=== PATIENT | male | born 2000 | race Two or more races ===

== ENCOUNTER 2022-01-24 09:46 | Outpatient (REF) | payer OTHER, MEDICAID, SELFPAY ==
[2022-01-24 09:55] LABS: MANUAL DIFF FLAG NO
[2022-01-24 10:31] LABS: Basophils Percent Auto 0.7 % (0-2); Eosinophils Absolute Auto 0.1 X10*3/uL (0.0-0.4); Hemoglobin 14.8 g/dl (14.0-18.0); Imm Gran Abs Auto 0.01 X10*3/uL (0.00-0.03); Imm Gran Pct Auto 0.2 % (0.0-0.4); Lymphocytes Absolute Auto 2.1 X10*3/uL (1.2-4.9); Lymphocytes Percent Auto 35.1 % (20-40); Mean Corpuscular HGB Conc 34.4 g/dl (31.0-36.0); Mean Corpuscular Hemoglobin 29.6 pg (27.0-33.0); Mean Platelet Volume 9.4 fL (9.4-12.4); Monocytes Absolute Auto 0.5 X10*3/uL (0.1-1.2); Monocytes Percent Auto 8.2 % (2-11); Neutrophils Absolute Auto 3.3 x10*3/uL (2.0-8.3); Neutrophils Percent Auto 53.8 % (45-73); Platelet Count 292 X10*3/uL (160-400); Red Cell Distribution Width 11.9 % (11.0-16.0); White Blood Count 6.1 X10*3/uL (4.8-10.8)
[2022-01-24 11:34] LABS: Albumin Level 5.3 g/dL (3.5-5.0); Anion Gap 11 (12-20); Calcium 9.9 mg/dL (8.4-10.2); Carbon Dioxide 28 mmol/L (22-29); Chloride 101 mmol/L (96-108); Glucose Random 89 mg/dL (60-115); Potassium 4.1 mmol/L (3.3-5.1); Sodium 136 mmol/L (135-145); Total Protein 7.6 g/dL (6.5-8.0)
[2022-01-24 11:41] LABS: Alanine Aminotransferase 52 U/L (0-40); Alkaline Phosphatase 60 U/L (39-117); Aspartate Amino Transferase 32 U/L (5-37); Bilirubin Total 0.4 mg/dL (0.0-1.0); Blood Urea Nitrogen 24 mg/dL (9-16); Estimated Glomerular Filt Rate > 60
== END 2022-01-24 09:47 | disposition home or self-care (01) ==
LOC: HO.LAB 09:46
PROVIDERS: PCP Internal Medicine; Visit Provider Internal Medicine
DX: R51.9 Headache, unspecified (principal)
CPT/HCPCS: 36415; 80053; 85025

== ENCOUNTER 2022-02-05 17:27 | Outpatient (REF) | payer OTHER, MEDICAID, SELFPAY ==
--- NOTE | ~2022-02-05 | MR_ITS ---
EXAMINATION: MR BRAIN WITHOUT CONTRAST CLINICAL INFORMATION: Headaches. COMPARISON: None. TECHNIQUE: Multiplanar, multisequence imaging of the brain was performed without contrast. Slightly limited study with motion artifacts. FINDINGS: No diffusion abnormalities are identified to suggest an acute infarct. The ventricles are normal in size. No mass effect or midline shift is seen. No brain parenchymal signal abnormality is noted. No extra-axial fluid collections are seen. The brainstem and cerebellum are normal. The gradient refocused acquisition is normal. The craniovertebral junction, marrow signal, and midline structures are normal. The major intracranial flow voids at the level of the [place] are preserved. The dural venous sinus flow voids are maintained. The mastoid air cells are well aerated. Severe rightward nasal septal deviation noted with mild ethmoid sinus mucosal thickening. MR/MR head/brain wo con IMPRESSION: Normal MRI of the brain with motion artifacts. Significant rightward nasal septal deviation.
== END 2022-02-05 17:28 | disposition home or self-care (01) ==
LOC: HO.MRI 17:27
PROVIDERS: Visit Provider Internal Medicine
DX: R51.9 Headache, unspecified (principal)
CPT/HCPCS: 70551

== ENCOUNTER 2022-03-12 07:51 | Outpatient (REF) | payer OTHER, MEDICAID, SELFPAY ==
--- NOTE | ~2022-03-12 | US_ITS ---
EXAMINATION: US ABDOMEN COMPLETE CLINICAL INFORMATION: Elevation of levels of liver transaminase levels. COMPARISON: None TECHNIQUE: Real-time imaging of the abdominal viscera. FINDINGS: PANCREAS: Normal. ABDOMINAL AORTA: The proximal, mid, and distal segments are normal in caliber. INFERIOR VENA CAVA: Visualized portions are normal. LIVER: Normal. The liver is normal in size. The liver contour is normal. Parenchymal echogenicity is normal. No focal hepatic lesion. There is no intrahepatic biliary duct dilatation seen. GALLBLADDER: Multiple gallbladder polyps measuring up to 3 mm. The gallbladder is physiologically distended without evidence of stones, sludge, wall thickening or pericholecystic fluid. COMMON BILE DUCT: Normal in caliber measuring 0.5 cm in diameter. RIGHT KIDNEY: Normal. No hydronephrosis. No renal calculi or focal parenchymal lesions. The kidney measures 10.4 cm in maximum dimension. LEFT KIDNEY: Normal. No hydronephrosis. No renal calculi or focal parenchymal lesions. The kidney measures 11.4 cm in maximum dimension. SPLEEN: Normal. The spleen measures 12.1 cm in maximum dimension. FREE FLUID: None. US/US abdomen complete IMPRESSION: Multiple gallbladder polyps measuring up to 3 mm. If patient has no risk factors for gallbladder malignancy* or symptoms attributable to the gallbladder, follow-up recommendations are repeat ultrasound at one, 3, and 5 years from the date of original exam documenting the findings. If patient has symptoms attributable to the gallbladder, cholecystectomy is suggested if there are no alternative causes for the symptoms and the patient is fit for and accepts surgery. If cholecystectomy is not deemed appropriate follow-up as below. If patient has no symptoms and risk factors are present or patient is symptomatic and cholecystectomy is deemed not appropriate, follow-up.
[2022-03-12 09:58] LABS: Alanine Aminotransferase 37 U/L (0-40); Albumin Level 4.5 g/dL (3.5-5.0); Alkaline Phosphatase 60 U/L (39-117); Aspartate Amino Transferase 31 U/L (5-37); Bilirubin Direct 0.2 mg/dL (0.0-0.5); Bilirubin Total 0.5 mg/dL (0.0-1.0); Total Protein 7.3 g/dL (6.5-8.0)
== END 2022-03-12 07:52 | disposition home or self-care (01) ==
LOC: HO.US 07:51
PROVIDERS: PCP Internal Medicine; Visit Provider Internal Medicine
DX: R74.01 Elevation of levels of liver transaminase levels (principal)
CPT/HCPCS: 36415; 76700; 80076

== ENCOUNTER → 2022-04-02 08:19 | Outpatient (BNVA) | payer OTHER, MEDICAID, SELFPAY | PROVIDERS: PCP Internal Medicine; Visit Provider Nurse Practitioner Family | DX: Z13.89 Encounter for screening for other disorder (principal) ==

== ENCOUNTER → 2022-06-07 08:45 | Outpatient (BNVA) | payer OTHER, MEDICAID, SELFPAY | PROVIDERS: PCP Internal Medicine; Referring Provider Internal Medicine; Visit Provider Surgery | DX: Z13.89 Encounter for screening for other disorder (principal) ==

== ENCOUNTER → 2022-06-13 08:17 | Outpatient (BNVA) | payer OTHER, MEDICAID, SELFPAY | PROVIDERS: PCP Internal Medicine; Visit Provider Nurse Practitioner Family | DX: Z13.89 Encounter for screening for other disorder (principal) ==

== ENCOUNTER 2022-11-28 08:25 | Outpatient (REF) | payer OTHER, SELFPAY | END 2022-11-28 08:26 | disposition home or self-care (01) | LOC: HO.HMGCX 08:25 | PROVIDERS: PCP Internal Medicine; Visit Provider Surgery | DX: K82.4 Cholesterolosis of gallbladder (principal) | CPT/HCPCS: 76705 ==

== ENCOUNTER 2022-12-03 08:18 | Outpatient (AMB) | payer OTHER, SELFPAY ==
--- NOTE | 2022-12-03 08:19 | MHC.OFFVIS ---
Intake Vital Signs 12/03/22 08:23 Height 5 ft 8 in Weight 157 lb BMI 23.9 BP 124/58 L Blood Pressure Location Rt brachial Position Sitting Pulse 68 Intake Visit Reasons: Gallbladder polyps, 6 mo follow up Intake Note: Patient here to f/u 6m gallbladder polyps. Patient reports recently experiencing pain on rt to mid lower abd pain. Denies constipation, diarrhea. Reports no changes in medical hx since last visit. Upper Marker Required: No Accompanied by: Mother Allergies No Known Allergies Allergy (Verified 12/03/22 08:25) Medication List - Last Reconciled 12/03/22 by Aneesh Perez MD amitriptyline 10 mg PO BEDTIME 30 days ammonium lactate 12% 1 appl topical DAILY benzoyl peroxide 5% 1 appl topical DAILY fluticasone propionate 50 mcg/actuation (Allergy Relief (fluticasone)) 1 spray intranasal DAILY ibuprofen 400 mg PO Q6H loratadine (Allergy Relief (loratadine)) 10 mg PO DAILY magnesium oxide 400 mg PO BEDTIME 30 days riboflavin (vitamin B2) 400 mg PO DAILY 30 days sumatriptan succinate 50 - 100 mg orally at onset of headache, may repeat in 2 hrs PRN; max 2 tabs per day or 4 tabs/week (may take with Ibuprofen) 30 days tretinoin 0.025% 1 appl topical BEDTIME triamcinolone acetonide 0.1% 1 appl dental BEDTIME PRN HPI HPI Comments History of Present Illness Details Patient presents with his mother for evaluation/surveillance of gallbladder polyps. He is having no right upper quadrant symptoms. He has nonspecific infraumbilical abdominal crampy pain but nothing suggestive of biliary disease. He has never been jaundiced before. Tolerating his diet. Moving his bowels. Follow-up sonogram demonstrates 2 mm polyps of gall bladder status quo [facility] Surgical History No pertinent past surgical history Family History Mother Arthritis Generalized headaches Father Hypercholesteremia Maternal Grandfather Cancer Maternal Grandmother Cancer Social History Housing: Apartment Patient Tobacco Use Status: Never used Tobacco e-Cigarette/Vaping Use: Never Used Second Hand Smoke Exposure: No service: No Current occupational status: employed Current occupational exposures/hazards: No Cognitive needs: No Hearing needs: No Vision needs: No Physical Exam Vital Signs: Last Vital Signs Pulse 68 12/03/22 08:23 BP 124/58 L 12/03/22 08:23 BMI result Body Mass Index 23.9 Eyes Other: Anicteric GI Other: Thin male. Examined both supine and standing. Abdomen soft. No evidence of any groin umbilical hernia. Benign exam. Assessment & Plan Assessment & Plan (1) Polyp of gallbladder: Code(s): K82.4 - Cholesterolosis of gallbladder Plan: Current plan is see the patient approximately 1 year's time with follow-up surveillance sonogram. Should he continue to have his nonspecific lower abdominal pains, I recommend he follow-up with his tool design engineer. All questions were answered. Patient will see me as directed or p.r.n. Orders: Orders US abdomen limited 11 Months K82.4 - Cholesterolosis of gallbladder Coding Level of Care Code Est Pt Level 3 (21524) Diagnoses Polyp of gallbladder K82.4
[2022-12-03 08:23] VITALS: BP 124/58; PULSE 68; BMI 23.9
== END 2022-12-03 08:34 | disposition home or self-care (01) ==
PROVIDERS: PCP Internal Medicine; Visit Provider Surgery
DX: K82.4 Cholesterolosis of gallbladder (principal)
CPT/HCPCS: 99213

== ENCOUNTER → 2022-12-03 08:18 | Outpatient (BNVA) | payer OTHER, SELFPAY | PROVIDERS: PCP Internal Medicine; Visit Provider Surgery ==

== ENCOUNTER 2023-06-10 07:18 | Outpatient (AMB) | payer BC, SELFPAY ==
--- NOTE | 2023-06-10 07:33 | A.OFFPC_ITS ---
Vital Signs 06/10/23 07:36 Height 5 ft 8 in Weight 161 lb BMI 24.5 BP 120/80 Blood Pressure Location Lt brachial Position Sitting Intake Visit Reasons: PE Intake Note: Patient here for a physical exam Communications Instructor Required: No Accompanied by: Self / Same As Patient Allergies No Known Allergies Allergy (Verified 06/10/23 07:44) Medication List - Last Reconciled 06/10/23 by Silva Hsu MD amitriptyline 10 mg PO BEDTIME 30 days ammonium lactate 12% 1 appl topical DAILY benzoyl peroxide 5% 1 appl topical DAILY fluticasone propionate 50 mcg/actuation (Allergy Relief (fluticasone)) 1 spray intranasal DAILY ibuprofen 400 mg PO Q6H loratadine (Allergy Relief (loratadine)) 10 mg PO DAILY magnesium oxide 400 mg PO BEDTIME 30 days riboflavin (vitamin B2) 400 mg PO DAILY 30 days sumatriptan succinate 50 - 100 mg orally at onset of headache, may repeat in 2 hrs PRN; max 2 tabs per day or 4 tabs/week (may take with Ibuprofen) 30 days tretinoin 0.025% 1 appl topical BEDTIME triamcinolone acetonide 0.1% 1 appl dental BEDTIME PRN Tobacco use date assessed: 06/10/23 Dental Screening Dental Screen Date: 06/10/23 Did you have a dental visit in the last 12 months?: Yes Did you have a dental problem in the last 6 months where you did not have access to dental care?: No Was dental information given to patient?: Patient has dentist HPI HPI Comments History of Present Illness Details This is a 22-year-old male that comes accompanied by mother for his physical exam. Denies any acute complaint. Has gallbladder polyp that is follow by surgery. Immunizations up-to-date except tetanus vaccine. No chest pain or shortness of breath. No fever or cough. PFSH Surgical History No pertinent past surgical history Family History Mother Arthritis Generalized headaches Father Hypercholesteremia Maternal Grandfather Cancer Maternal Grandmother Cancer Social History (Updated 06/10/23 @ 07:49 by Silva Hsu MD) Housing: Apartment Alcohol intake: never Patient Tobacco Use Status: Never used Tobacco e-Cigarette/Vaping Use: Never Used Second Hand Smoke Exposure: No service: No Current occupational status: employed Current occupational exposures/hazards: No Cognitive needs: No Hearing needs: No Vision needs: No Questionnaire PHQ-9 Over the last 2 weeks, how often have you been bothered by any of the following problems? 1. Little interest or pleasure in doing things: not at all 2. Feeling down, depressed, or hopeless: not at all 3. Trouble falling or staying asleep, or sleeping too much: not at all 4. Feeling tired or having little energy: not at all 5. Poor appetite or overeating: not at all 6. Feeling bad about yourself - or that you are a failure or have let yourself or your family down: not at all 7. Trouble concentrating on things, such as reading the newspaper or watching television: not at all 8. Moving or speaking so slowly that other people could have noticed. Or the opposite - being so fidgety or restless that you have been moving around a lot more than usual: not at all 9. Thoughts that you would be better off or of hurting yourself in some way: not at all Total score: 0 Depression Screening Interpretation: Negative Depression Screening Done: Yes 22779 - PHQ-9 Billing: Yes Source: Developed by Drs. Shamir Almeida, Bhakti Ibanez, Peyman Harmon and colleagues, with an educational carmenza from [employer]. Thrive Questionnaire Date Thrive assessed: 06/10/23 I am a: Patient What is your living situation today?: I have a steady place to live Within the past 12 months, did the food you bought not last and you didn't have the money to get more?: Never true Within the past 12 months, did you worry whether your food would run out before you got money to buy more?: Never true Do you have trouble paying for medicines?: No Do you have trouble getting transportation to medical appointments?: No Do you have trouble paying your heating and electricity bill?: No Do you have trouble taking care of your child, family member or friend?: No Do you have trouble with day-to-day activities such as bathing, preparing meals, shopping, managing finances, etc.?: No Are you currently unemployed and looking for a job?: No Are you interested in more education?: No Please select the resources that you would like help with: None Currently or been in a relationship where the following occur: no concerns reported THRIVE Score: 0 AUDIT C Alcohol Use Questionnaire (AUDIT-C) 1. How often do you have a drink containing alcohol?: Never Total Score: 0 JAVON-7 AMB Questionnaire JAVON-7 Date JAVON - 7 assessed: 06/10/23 Feeling nervous, anxious, or on edge: 0 = Not at all Not being able to stop or control worryin = Not at all Worrying too much about different things: 0 = Not at all Trouble relaxin = Not at all Being so restless that it is hard to sit still: 0 = Not at all Becoming easily annoyed or irritable: 0 = Not at all Feeling afraid as if something awful might happen: 0 = Not at all Total JAVON-7 score (0-4 normal; 5-9 mild; 10-14 moderate; 15-21 severe): 0 Source: Developed by Drs. Shamir Almeida, Bhakti Ibanez, Peyman Harmon and colleagues, with an educational carmenza from [employer]. JAVON-7 Assessment Billing JAVON-7 Assessment Tool: JAVON-7 Assessment 82913 Review of Systems Const All systems reviewed & are unremarkable except as noted in HPI and below Eyes Reports no additional complaints, Denies change in vision and Denies other visual disturbances Card Denies chest pain at rest, Denies chest pain with activity, Denies edema, Denies irregular heart rhythm, Denies claudication, Denies dyspnea, Denies dyspnea on exertion, Denies orthopnea, Denies paroxysmal nocturnal dyspnea and Denies slow heart rate Resp Denies cough, Denies dyspnea and Denies dyspnea on exertion GI Denies abdominal pain, Denies change in bowel habits, Denies excessive flatus, Denies nausea and Denies vomiting Denies urinary hesitancy, Denies urinary incontinence and Denies urinary urgency Physical exam (Primary Care) Vital Signs: Last Vital Signs BP 120/80 06/10/23 07:36 BMI result Body Mass Index 24.5 Tobacco/Smoking Status: Tobacco use Status Tobacco use date assessed 06/10/23 06/10/23 07:39 Patient Tobacco Use Status Never used Tobacco 06/10/23 07:49 e-Cigarette/Vaping Use Never Used 06/10/23 07:49 PHQ-9: PHQ-9 Score PHQ-9: Total score 0 06/10/23 07:50 Depression Screening Interpretation: Negative Thrive Assessment: Date of Thrive Assessment Date Thrive assessed 06/10/23 06/10/23 07:39 Currently or been in a relationship where the following occur: no concerns reported Const Orientation/consciousness: patient oriented x3 HENMT Head: Yes normal to inspection, Yes normocephalic and Yes atraumatic Ears: external ears normal Eyes General: appearance normal, both eyes and all related structures Eyelids: Yes eyelids normal Conjunctivae: conjunctivae normal Neck Neck: Yes normal visual inspection and Yes supple Resp Effort & Inspection: normal respiratory effort Auscultation: clear to auscultation bilaterally Cardio Jugular venous distension: no JVD Rate: regular rate Rhythm: regular rhythm Heart sounds: S1 normal heart sound present and S2 normal heart sound present GI Inspection: Yes normal to inspection Palpation (GI): Soft to palpation and nontender Auscultation: normal bowel sounds Skin General skin exam: no rashes or lesions noted Neuro General: patient oriented x3 and no focal motor deficits Extrem General: Yes full ROM Psych Appearance: grossly normal Immunizations Boostrix Tdap 2.5 Lf unit-8 mcg-5 Lf/0.5 mL intramuscular syringe Performing Provider: Silva Hsu MD Performing Location: [facility] Administered by: ALIX Mayes on 06/10/23 08:01 Dose Route Admin Location Dispensed Lot Number Expiration Date [facility] Circulation Worker 0.5 mL IM Left Deltoid 0.5 mL [id number] 06/28/25 22619-429-21 [employer] VIS Given Date VIS Provided VIS Publication Date 06/10/23 Single Vaccine 20 Eligibility Eligibility Date Funding Source Not [facility] Eligible 06/10/23 Private Assessment and Plan Assessment & Plan (1) Physical exam: Code(s): Z00.00 - Encounter for general adult medical examination without abnormal fin dings Plan: Repeat in a year. Orders: Orders TDaP Immunization Today Z23 - Encounter for immunization Medications: New Boostrix Tdap (diphth,pertus(acell),tetanus) 0.5 mL IM ONCE 0.5 mL 0RF NS Z23 - Encounter for immunization Coding Level of Care Code Est Pt Prev Care 18-39y(34620) Diagnoses Physical exam Z00.00 Additional Codes JAVON-7 Assessment Billing - JAVON-7 Assessment Tool: JAVON-7 Assessment 19526 ([id number]) Time Spent (min) 30
[2023-06-10 07:36] VITALS: BP 120/80; BMI 24.5
== END 2023-06-10 08:00 | disposition home or self-care (01) ==
PROVIDERS: PCP Internal Medicine; Visit Provider Internal Medicine
DX: Z23 Encounter for immunization (principal); Z00.00 Encounter for general adult medical examination without abnormal findings
CPT/HCPCS: 90471; 90715; 99395

== ENCOUNTER → 2023-06-26 08:03 | Outpatient (BNVA) | payer SELFPAY | PROVIDERS: PCP Internal Medicine; Visit Provider Physician Assistant Medical | DX: Z02.79 Encounter for issue of other medical certificate (principal) ==

== ENCOUNTER 2023-10-28 08:32 | Outpatient (REF) | payer BC, SELFPAY ==
--- NOTE | ~2023-10-28 | US_ITS ---
EXAMINATION: US ABDOMEN LIMITED CLINICAL INFORMATION: Cholesterolosis of gallbladder. COMPARISON: Ultrasound abdomen 11/28/2022 and 03/12/2022. TECHNIQUE: Real-time imaging of the right upper quadrant abdominal viscera. FINDINGS: PANCREAS: Normal. LIVER: Normal. The liver is normal in size. The liver contour is normal. Parenchymal echogenicity is normal. No focal hepatic lesion. There is no intrahepatic biliary duct dilatation seen. GALLBLADDER: Few tiny 2 mm gallbladder polyps which appear low risk in morphology previously measuring up to 2 mm. The gallbladder is physiologically distended without evidence of stones, sludge, wall thickening or pericholecystic fluid. COMMON BILE DUCT: Normal in caliber measuring 0.37 cm in diameter. RIGHT KIDNEY: Normal. No hydronephrosis. No renal calculi or focal parenchymal lesions. The kidney measures 10.7 cm in maximum dimension. FREE FLUID: None. US/US abdomen limited IMPRESSION: Few tiny 2 mm gallbladder polyps which appear low risk in morphology previously measuring up to 2 mm. Electronically signed by: Mary Atkins MD 11/03/2023 06:36 PM EDT
== END 2023-10-28 08:33 | disposition home or self-care (01) ==
LOC: HO.HMGCX 08:32
PROVIDERS: PCP Internal Medicine; Visit Provider Surgery
DX: K82.4 Cholesterolosis of gallbladder (principal)
CPT/HCPCS: 76705

== ENCOUNTER 2023-12-15 08:54 | Outpatient (AMB) | payer BC, SELFPAY ==
[2023-12-15 09:03] VITALS: BP 138/65; PULSE 92; BMI 24.2
--- NOTE | 2023-12-15 09:03 | A.OFFVIS_ITS ---
Vital Signs 12/15/23 09:03 Height 5 ft 8 in Weight 159 lb BMI 24.2 BP 138/65 Blood Pressure Location Rt brachial Position Sitting Pulse 92 Intake Visit Reasons: Gallbladder polyps, 1 year follow up Intake Note: Patient here for 1yr follow up gallbladder polyps. Patient c/o: mid lower abdominal discomfort. Denies diarrhea, constipation. ABD US: 10-28-2023. Dispatcher Tugboat Required: No Accompanied by: Mother Allergies No Known Allergies Allergy (Verified 12/15/23 09:04) HPI Comments Details: Patient was with his mother. He has no upper abdominal symptoms or complaints. He states when he eats very fast/quickly he will get some lower abdominal pain but I think this is unrelated to his gallbladder polyps. The meantime sonogram demonstrates unchanged 2 mm gallbladder polyps. PFSH Surgical History No pertinent past surgical history Family History Mother Arthritis Generalized headaches Father Hypercholesteremia Maternal Grandfather Cancer Maternal Grandmother Cancer Social History Housing: Apartment Alcohol intake: never Patient Tobacco Use Status: Never used Tobacco e-Cigarette/Vaping Use: Never Used Second Hand Smoke Exposure: No service: No Current occupational status: employed Current occupational exposures/hazards: No Cognitive needs: No Hearing needs: No Vision needs: No Physical Exam Vital Signs: Last Vital Signs Pulse 92 12/15/23 09:03 BP 138/65 12/15/23 09:03 BMI result Body Mass Index 24.2 GI Other: Abdomen is soft, benign Assessment & Plan Assessment & Plan (1) Polyp of gallbladder: Code(s): K82.4 - Cholesterolosis of gallbladder Category: Surgical Plan From a surgical perspective, no further interventions required regarding gallbladder small polyps. Patient will otherwise follow-up p.r.n.. Coding Level of Care Code Est Pt Level 3 (50297) Diagnoses Polyp of gallbladder K82.4
== END 2023-12-15 09:11 | disposition home or self-care (01) ==
PROVIDERS: PCP Internal Medicine; Visit Provider Surgery
DX: K82.4 Cholesterolosis of gallbladder (principal)
CPT/HCPCS: 99213

== ENCOUNTER → 2023-12-15 08:54 | Outpatient (BNVA) | payer BC, SELFPAY | PROVIDERS: PCP Internal Medicine; Visit Provider Surgery ==

== ENCOUNTER 2024-12-29 07:29 | Outpatient (REF) | payer BC, SELFPAY ==
[2024-12-29 11:07] LABS: CT PCR Urine NOT DETECTED (Not Detect.); NG PCR Urine NOT DETECTED (Not Detect.)
== END 2024-12-29 07:30 | disposition home or self-care (01) ==
LOC: HO.LAB 07:29
PROVIDERS: PCP Internal Medicine; Visit Provider Internal Medicine
DX: Z00.00 Encounter for general adult medical examination without abnormal findings (principal); K82.4 Cholesterolosis of gallbladder; Z20.2 Contact with and (suspected) exposure to infections with a predominantly sexual mode of transmission
CPT/HCPCS: 87491; 87591; 96127

== ENCOUNTER 2024-12-29 07:29 | Outpatient (AMB) | payer BC, SELFPAY ==
[2024-12-29 07:32] VITALS: BP 112/68; PULSE 69; O2SAT 98; BMI 24.0
--- NOTE | 2024-12-29 07:32 | MHC.PC.OV ---
Vital Signs 12/29/24 07:32 Height 5 ft 8 in Weight 158 lb BMI 24.0 BP 112/68 Blood Pressure Location Lt brachial Position Sitting Pulse 69 Pulse Source Pulse Oximeter Pulse Oximetry (%) 98 Oxygen Delivery Method Room Air Intake Visit Reasons: annual physical Contract Runner Required: No Accompanied by: Self / Same As Patient Allergies No Known Allergies Allergy (Verified 12/29/24 07:43) Medication List - Last Reconciled 12/29/24 by Silva Hsu MD ammonium lactate 12% 1 appl topical DAILY benzoyl peroxide 5% 1 appl topical DAILY fluticasone propionate 50 mcg/actuation (Allergy Relief (fluticasone)) 1 spray intranasal DAILY ibuprofen 400 mg PO Q6H loratadine (Allergy Relief (loratadine)) 10 mg PO DAILY magnesium oxide 400 mg PO BEDTIME 30 days sumatriptan succinate 50 - 100 mg orally at onset of headache, may repeat in 2 hrs PRN; max 2 tabs per day or 4 tabs/week (may take with Ibuprofen) 30 days tretinoin 0.025% 1 appl topical BEDTIME triamcinolone acetonide 0.1% 1 appl dental BEDTIME PRN Tobacco use date assessed: 12/29/24 Dental Screening Dental Screen Date: 12/29/24 Did you have a dental visit in the last 12 months?: Yes Did you have a dental problem in the last 6 months where you did not have access to dental care?: No Was dental information given to patient?: Patient has dentist HPI HPI Comments History of Present Illness Details The patient is a 24-year-old male presenting for a follow-up visit for his physical exam accompanied by mother. Declines flu vaccine. He is sexually active and wants to be screened for sexually transmitted diseases despite not having any symptoms. He does use condoms. The patient has a history of a few tiny 2 mm gallbladder polyps, which were identified on an ultrasound in November of the previous year and appeared to have low-risk morphology. The gallbladder was noted to be physiologically distended without evidence of stones, sludge, wall thickening, or pericholecystic fluid. His last laboratory results were noted to be normal. He has a history of canker sores since childhood, which reportedly resolve within a week with xlvy-szk-krumjbp treatments such as Orajel. He also has a history of migraines, for which he takes sumatriptan as needed, and allergies, managed with loratadine and a nasal spray. He takes ibuprofen as needed and magnesium at bedtime. Past surgical history is negative. Family history is notable for arthritis and headaches in his mother and high cholesterol in his father. [facility] Surgical History No pertinent past surgical history Family History Mother Arthritis Generalized headaches Father Hypercholesteremia Maternal Grandfather Cancer Maternal Grandmother Cancer Social History Housing: Apartment Alcohol intake: never Patient Tobacco Use Status: Never used Tobacco Tobacco use type: Cigarette e-Cigarette/Vaping Use: Never Used Second Hand Smoke Exposure: No service: No Current occupational status: employed Current occupational exposures/hazards: No Cognitive needs: No Hearing needs: No Vision needs: No Questionnaire PHQ-9 Over the last 2 weeks, how often have you been bothered by any of the following problems? 1. Little interest or pleasure in doing things: not at all 2. Feeling down, depressed, or hopeless: not at all 3. Trouble falling or staying asleep, or sleeping too much: not at all 4. Feeling tired or having little energy: not at all 5. Poor appetite or overeating: not at all 6. Feeling bad about yourself - or that you are a failure or have let yourself or your family down: not at all 7. Trouble concentrating on things, such as reading the newspaper or watching television: not at all 8. Moving or speaking so slowly that other people could have noticed. Or the opposite - being so fidgety or restless that you have been moving around a lot more than usual: not at all 9. Thoughts that you would be better off or of hurting yourself in some way: not at all Total score: 0 Depression Screening Interpretation: Negative Depression Screening Done: Yes 80810 - PHQ-9 Billing: Yes Source: Developed by Drs. Shamir Almeida, Bhakti Ibanez, Peyman Harmon and colleagues, with an educational carmenza from [employer]. Thrive Questionnaire Date Thrive assessed: 12/29/24 I am a: Patient What is your living situation today?: I have a steady place to live Within the past 12 months, did the food you bought not last and you didn't have the money to get more?: Never true Within the past 12 months, did you worry whether your food would run out before you got money to buy more?: Never true Do you have trouble paying for medicines?: No Do you have trouble getting transportation to medical appointments?: No Do you have trouble paying your heating and electricity bill?: No Do you have trouble taking care of your child, family member or friend?: No Do you have trouble with day-to-day activities such as bathing, preparing meals, shopping, managing finances, etc.?: No Are you currently unemployed and looking for a job?: No Are you interested in more education?: No Please select the resources that you would like help with: None Currently or been in a relationship where the following occur: No concerns reported THRIVE Score: 0 AUDIT C Alcohol Use Questionnaire (AUDIT-C) 1. How often do you have a drink containing alcohol?: Monthly or less 2. How many drinks containing alcohol do you have on a typical day when you are drinking?: 1 or 2 3. How often do you have six or more drinks on one occasion?: Never Total Score: 1 Score Reviewed/Action Taken: No JAVON-7 AMB Questionnaire JAVON-7 Date JAVON - 7 assessed: 12/29/24 Feeling nervous, anxious, or on edge: 0 = Not at all Not being able to stop or control worryin = Not at all Worrying too much about different things: 0 = Not at all Trouble relaxin = Not at all Being so restless that it is hard to sit still: 0 = Not at all Becoming easily annoyed or irritable: 0 = Not at all Feeling afraid as if something awful might happen: 0 = Not at all Total JAVON-7 score (0-4 normal; 5-9 mild; 10-14 moderate; 15-21 severe): 0 Source: Developed by Drs. Shamir Almeida, Bhakti Ibanez, Peyman Harmon and colleagues, with an educational carmenza from [employer]. JAVON-7 Assessment Billing JAVON-7 Assessment Tool: JAVON-7 Assessment 67218 Review of Systems Const All systems reviewed & are unremarkable except as noted in HPI and below Card Denies chest pain at rest, Denies chest pain with activity, Denies edema, Denies irregular heart rhythm, Denies claudication, Denies dyspnea, Denies dyspnea on exertion, Denies orthopnea, Denies paroxysmal nocturnal dyspnea and Denies slow heart rate Resp Denies cough, Denies dyspnea and Denies dyspnea on exertion GI Denies abdominal pain, Denies change in bowel habits, Denies excessive flatus, Denies nausea and Denies vomiting Physical exam (Primary Care) Vital Signs: Last Vital Signs Pulse 69 12/29/24 07:32 BP 112/68 12/29/24 07:32 Pulse Ox 98 12/29/24 07:32 Oxygen Delivery Method Room Air 12/29/24 07:32 BMI result Body Mass Index 24.0 Tobacco/Smoking Status: Tobacco use Status Tobacco use date assessed 12/29/24 12/29/24 07:38 Patient Tobacco Use Status Never used Tobacco 12/29/24 07:38 Tobacco use type Cigarette 12/29/24 07:38 e-Cigarette/Vaping Use Never Used 12/29/24 07:38 PHQ-9: PHQ-9 Score PHQ-9: Total score 0 12/29/24 07:38 Depression Screening Interpretation: Negative Thrive Assessment: Date of Thrive Assessment Date Thrive assessed 12/29/24 12/29/24 07:38 Currently or been in a relationship where the following occur: No concerns reported Eyes General: appearance normal, both eyes and all related structures Eyelids: Yes eyelids normal Conjunctivae: conjunctivae normal Neck Neck: Yes normal visual inspection and Yes supple Resp Effort & Inspection: normal respiratory effort Auscultation: clear to auscultation bilaterally Cardio Jugular venous distension: no JVD Rate: regular rate Rhythm: regular rhythm Heart sounds: S1 normal heart sound present and S2 normal heart sound present GI Inspection: Yes normal to inspection Palpation (GI): Soft to palpation and nontender Auscultation: normal bowel sounds Skin General skin exam: no rashes or lesions noted Neuro General: no focal motor deficits Extrem General: Yes full ROM Psych Appearance: grossly normal Coding Level of Care Code Est Pt Level 3 (37885) Est Pt Prev Care 18-39y(19108) Diagnoses Physical exam Z00.00 Screen for STD (sexually transmitted disease) Z11.3 Polyp of gallbladder K82.4 Additional Codes JAVON-7 Assessment Billing - JAVON-7 Assessment Tool: JAVON-7 Assessment 35904 ([id number]) PHQ-9 - 44291 - PHQ-9 Billing: Yes ([id number]) Time Spent (min) 31 Assessment & Plan Assessment & Plan (1) Physical exam: Code(s): Z00.00 - Encounter for general adult medical examination without abnormal findings Category: Medical (2) Screen for STD (sexually transmitted disease): Code(s): Z11.3 - Encounter for screening for infections with a predominantly sexual mode of transmission Category: Medical (3) Polyp of gallbladder: Code(s): K82.4 - Cholesterolosis of gallbladder Category: Surgical Plan Plan 1. Physical exam Repeat in a year. 2. Gallbladder Polyp The patient's prior ultrasound from approximately one year ago showed tiny, low-risk 2 mm polyps. No surgical intervention is required at this time. A follow-up ultrasound will be ordered to monitor for any changes, which is considered more important than blood work for this condition. 3. STD screening Labs and urine ordered. Orders: Orders Syphilis Screen Today Z11.3 - Encounter for screening for infections with a predominantly sexual mode of transmission HIV Ab/Ag Today Z11.3 - Encounter for screening for infections with a predominantly sexual mode of transmission, Z11.4 - Encounter for screening for human immunodeficiency virus [HIV] US abdomen limited Today K82.4 - Cholesterolosis of gallbladder CT NG by PCR Urine Today Z11.3 - Encounter for screening for infections with a predominantly sexual mode of transmission Trichomonas vag. RNA Ur Male Today Z11.3 - Encounter for screening for infections with a predominantly sexual mode of transmission
--- OUTSIDE RECORDS SUMMARY | 2024-12-29 07:33 | XMS_ITS | Clinical Summary ---
Author Organization [facility] Address [address] [place] [address] Care Team Providers Care Deicer Repairer Pneumatic Name Role Phone Tiffanie Kaufman MD Primary Care Provider [phone] Medical History Medical History Date Comments Atopic dermatitis DX:Atopic derm atitis; COMMENT: rx 2.5% hydrocortisone Nocturnal enuresis DX:Nocturnal enuresis; COMMENT: saw Dr Martel 2010 Apnea, sleep DX:Apnea, sleep; COMMENT: brief, sleep study normal 2006 Left lower quadrant pain 11/30/2014 DX:Left lower quadrant pain; COMMENT: 11/30/14 chronic also oral ulcers, refer to GI 02/06 missed appointment. Labs ordered 12/01/14 Hg 12.8, ESR 14, re to GI 01/01/[address] Sierra: functional vs Chron's? Stool softener FU in a month if not better Endoscopy 03/21/15 No celiac, CRP NL , H pylory neg, ot have endoscopy 04/11 Endoscopy NL. No FU GI. Aphthae, oral 11/30/2014 DX:Aphthae, oral Constipation 03/05/2016 DX:Constipation Sleep disorder 08/04/2018 DX:Sleep disorde r Seasonal allergic rhinitis d ue to pollen 08/18/2019 DX:Seasonal allergic rhiniti s due to pollen Keratosis pilaris 08/04/2018 DX:Keratosis p ilaris Covid-19 06/18/2021 DX:COVID-19; COM MENT: 02-26-21 Family History Medical History Relation Name Comments Other: Functional abdominal pain Brother 1 better on omeprazole Relation Name Status Comments Brother 1 Brother 2 Social History Tobacco Use Types Packs/Day Years Used Date Smoking Tobacco: Never Smokeless Tobacco: Never Alcohol Use Standard Drinks/Week Comments Not Asked 0 (1 standard drink = 0.6 oz pur e alcohol) Sex and Gender Information Value Date Recorded Sex Assigned at Not on file Legal Sex Male 2:49 AM EST Gender Identity Not on file Sexual Orientation Not on file Obstetrics History Last Filed Vital Signs Vital Sign Reading Time Taken Comments Blood Pressure 104/70 06/18/2021 8:37 AM EDT Pulse 66 06/18/2021 8:37 AM EDT Temperature - - Respiratory Rate - - Oxygen Saturation - - Inhaled Oxygen Concentration - - Weight 64.8 kg (142 lb 12.8 oz) 06/18/2021 8:37 AM EDT Height 172 cm (5' 7.72 ) 06/18/2021 8:37 AM EDT Body Mass Index 21.89 06/18/2021 8:37 AM EDT Plan of Treatment Health Maintenance Due Date Last Done Comments Meningococcal B Vaccine (1 of 2 - Standard) 2018 DTaP,Tdap,and Td Vaccines (7 - Td or Tdap) 01/04/2024 01/03/2014, 08/07/2006, 03/09/2004, Additional history exists Depression Screening 02/25/2024 COVID-19 Vaccine ( - season) 2024 Influenza Vaccine (#1) 2024 5, 01/03/2014, 01/01/2013, Additional history exists RSV Immunization Adult Patients (1 - 1-dose 75+ series) 2077 Hepatitis B Vaccines Completed 01/10/2003, 2002, 2002 HIB Vaccines Completed 03/09/2004, 07/2003, 2002, Additional history exists Pneumococcal Vaccine: Pediatrics (0 to 5 Years) and At-Risk Patients (6 to 49 Years) Completed 03/09/2004, 2002, 2002 IPV Vaccines Completed 08/07/2006, 02/24, 06/06/2003, Additional history exists MMR Vaccines Completed 08/07/2006, 07/28/2003 Varicella Vaccines Completed 08/07/2006, 07/28/2003 HPV Vaccines Completed 07/06/2014, 02/24, 01/03/2014 Meningococcal ACWY Vaccine Completed 08/04/2018, Hepatitis A Vaccines Aged Out No long er eligible based on patient's age to complete this topic RSV Immunization Patients Under 20 months Aged Out No longer eligible based on patient's age to complete this topic Care Teams Deicer Repairer Pneumatic Relationship Specialty Start Date End Date Tiffanie Kaufman MD PCP - General Pediatrics 05/21/21
--- OUTSIDE RECORDS SUMMARY | 2024-12-29 07:33 | XMS_ITS | Encounter Summary ---
Author Organization [facility] Address [address] [place] [address] Phone Care Team Providers Care Game Manager Name Role Phone Desmond Walton MD Primary Care Provider Unavailabl e Encounter Details Date Type Department Care Team (Late st Contact Info) Description 07/18/2011 Documentation EM Family Medicine [address] [place] [address] Family Medicine, Physician [facility] [address] [place], [place] [id number] Social History Tobacco Use Types Packs/Day Years Used Date Smoking Tobacco: Never Assessed Sex and Gender Information Value Date Recorded Sex Assigned at Not on file Legal Sex Male 4:50 PM EDT Gender Identity Not on file Sexual Orientation Not on file documented as of this encounter Plan of Treatment Not on file documented as of this encounter Visit Diagnoses Not on filedocumented in this encounter Care Teams Game Manager Relationship Specialty Start Date End Date Desmond Walton MD PCP - General 10/04/16 04/03/22 documented as of this encounter
--- OUTSIDE RECORDS SUMMARY | 2024-12-29 07:33 | XMS_ITS | Clinical Summary ---
Author Organization [facility] Address [address] [place], [place] [id number] Phone Care Team Providers Care Ladle Patcher Name Role Phone Unavailable Primary Care Provider Unavailabl e Immunizations Immunization Administration Dates Next Due DTaP 5 08/07/2006, 5,03/01/2003, 003,2002 H1N1 03/16/2009,02/02/2009 Hep B, ped/adol 01/10/2003,2002,2002 Hib (HbOC) 03/09/2004 Hib (PRP-T) 03/01/2003,2002,2002 IPV 08/07/2006, 4,2002, 003 Influenza, injectable, trivalent 03/16/2009 Influenza, intranasal, quadrivalent 01/01/2013,1 Influenza, intranasal, trivalent 11/07/2011 MMR 07/28/2003 MMRV 08/07/2006 Pneumococcal Conjugate 03/09/2004,2002, Unknown Vaccine 07/26/2004,07/28/2003 Varicella 07/28/2003 Family History Relation Name Status Comments Brother Alive Brother: Alive and well Father Alive Father: Alive a nd well Maternal Grandmother Materna l grandmother: Migraines Mother Alive Mother: Migrain es , arthritis , ulcer Social History Tobacco Use Types Packs/Day Years Used Date Smoking Tobacco: Never Assessed Sex and Gender Information Value Date Recorded Sex Assigned at Not on file Legal Sex Male 4:50 PM EDT Gender Identity Not on file Sexual Orientation Not on file Last Filed Vital Signs Vital Sign Reading Time Taken Comments Blood Pressure 80/52 01/01/2013 12:00 AM EST Pulse 84 01/01/2013 12:00 AM EST Temperature 36.1 C (97 F) 12/28/2012 12:00 AM EST Respiratory Rate - - Oxygen Saturation - - Inhaled Oxygen Concentration - - Weight 37.7 kg (83 lb 3.2 oz) 01/01/2013 12:00 A M EST Height 129.5 cm (4' 3 ) 01/01/2013 12:00 AM EST Body Mass Index 22.49 01/01/2013 12:00 AM EST Plan of Treatment Health Maintenance Due Date Last Done Comments Hepatitis B Vaccines (3 of 3 - 3-dose series) 03/07/2003 01/10/2003, 2002, 2002 DTaP,Tdap,and Td Vaccines (6 - Tdap) 2013 08/07/2006, 03/09/2004, 03/01/2003, Additional history exists HPV Vaccines (1 - Male 3-dose series) 2017 Men B Vaccine (1 of 2 - Standard) 2018 Influenza Vaccines (#1) 2024 01/02/20 13, 12/03/2012, 11/07/2011, Additional history exists COVID-19 Vaccine ( - 2024- season) 2024 HIB Vaccines Completed 03/09/2004, 07/2003, 2002, Additional history exists Pneumococcal Vaccine Completed 03/09/2004, 2002, 2002 IPV Vaccines Completed 08/07/2006, 08/25, 2002, Additional history exists MMR Vaccines Completed 08/07/2006, 07/28/2003 Varicella Vaccines Completed 08/07/2006, 07/28/2003 Hepatitis A Vaccines Aged Out No long er eligible based on patient's age to complete this topic Meningococcal Vaccine Aged Out No hyacinth li eligible based on patient's age to complete this topic
--- OUTSIDE RECORDS SUMMARY | 2024-12-29 07:33 | XMS_ITS | Encounter Summary ---
Author Organization [facility] Address [address] [place] [address] Phone Care Team Providers Care Treasurer Name Role Phone Desmond Walton MD Primary Care Provider Unavailabl e Encounter Details Date Type Department Care Team (Late st Contact Info) Description 10/10/2016 Conversion Encounter [facility] - [address] [address] Social History Tobacco Use Types Packs/Day Years [...] on filedocumented in this encounter Care Teams Treasurer Relationship Specialty Start Date End Date Desmond Walton MD PCP - General 10/04/16 04/03/22 documented as of this encounter
== END 2024-12-29 08:07 | disposition home or self-care (01) ==
LOC: HO.HMCH 07:29
PROVIDERS: PCP Internal Medicine; Visit Provider Internal Medicine
DX: Z00.00 Encounter for general adult medical examination without abnormal findings (principal); K82.4 Cholesterolosis of gallbladder; Z11.3 Encounter for screening for infections with a predominantly sexual mode of transmission